=== PATIENT | male | born 1970 | race African-American/Black ===

== ENCOUNTER 2017-12-29 10:46 | Emergency (ER) | payer OTHER ==
[~2017-12-29] VITALS: Ht 172.7 cm; Wt 61.2 kg
[~2017-12-29 10:46] MED LIST: IBUPROFEN 600600 M1 PO; TIZANIDINE HCL4 MG PO
[2017-12-29] MEDS ORDERED: NORFLEX100 MG PO (12:02)
[2017-12-29] MEDS ORDERED: NAPROSYN500 MG PO (12:02)
[2017-12-29 12:18] VITALS: BP 148/94
== END 2017-12-29 12:21 | disposition home or self-care (01) ==
LOC: ER 10:46
DX: S39.012A Strain of muscle, fascia and tendon of lower back, initial encounter (principal); Z91.041 Radiographic dye allergy status; V49.49XA Driver injured in collision with other motor vehicles in traffic accident, initial encounter; Y93.89 Activity, other specified; Y92.410 Unspecified street and highway as the place of occurrence of the external cause; Y99.8 Other external cause status

== ENCOUNTER 2018-12-06 13:00 | Emergency (ER) | payer OTHER ==
[~2018-12-06] VITALS: Ht 175.3 cm; Wt 61.2 kg
[~2018-12-06 13:00] MED LIST changes: +NAPROSYN500 MG PO; +NORFLEX100 MG PO
[2018-12-06] MEDS ORDERED: ROBAXIN 750 MG750 MG PO (15:23)
[2018-12-06] MEDS ORDERED: NORCO 5-325 TA1 EAC1 PO (15:23)
[2018-12-06 16:04] VITALS: BP 129/94
== END 2018-12-06 16:04 | disposition home or self-care (01) ==
LOC: ER 13:00
DX: M54.5 Low back pain (principal); Z90.49 Acquired absence of other specified parts of digestive tract; Z88.8 Allergy status to other drugs, medicaments and biological substances

== ENCOUNTER 2019-01-07 18:13 | Emergency (ER) | payer OTHER ==
[~2019-01-07] VITALS: Ht 177.8 cm; Wt 59.0 kg
[~2019-01-07 18:13] MED LIST changes: +NORCO 5-325 TA1 EAC1 PO; +ROBAXIN 750 MG750 MG PO
[2019-01-07 18:43] LABS: ABSOLUTE NEUTROPHILS 3.4 thou/uL (1.4-8.2); BASOPHILS 0.4 % (0.0-2.0); EOSINOPHILS 6.5 % (0.0-3.0); HEMATOCRIT 41.8 % (42.0-52.0); LYMPHOCYTES 37.1 % (24.0-44.0); MCH 37.9 pg (26.0-34.0); MCHC 33.5 g/dL (28.0-37.0); MONOCYTES 9.5 % (1.0-8.0); PLATELET COUNT 208 thou/uL (150-400); POLYS 46.5 % (36.0-66.0); RDW 12.5 % (10.5-14.5); WBC 7.4 thou/uL (4.0-11.0)
[2019-01-07 18:53] LABS: ANION GAP 9 mmol/L (7-16); BUN 13 mg/dL (7-18); CALCIUM 9.3 mg/dL (8.5-10.1); CHLORIDE 101 mmol/L (98-107); CO2 27 mmol/L (21-32); CREATININE 0.9 mg/dL (0.7-1.3); GLUCOSE 85 mg/dL (74-106); POTASSIUM 3.7 mmol/L (3.5-5.1); SODIUM 137 mmol/L (136-145)
[2019-01-07 19:03] LABS: ALBUMIN 4.2 g/dL (3.4-5.0); SGOT 24 U/L (15-37); SGPT 23 U/L (30-65); TOTAL BILIRUBIN 0.4 mg/dL (<0.1-1.0); TOTAL PROTEIN 8.9 g/dL (6.4-8.2); TROPONIN-I <0.06 ng/mL (<0.06)
[2019-01-07 19:10] LABS: MACROCYTES 3+
[2019-01-07] MEDS ORDERED: PROAIR HFA8.5 GM INH (20:21)
[2019-01-07] MEDS ORDERED: PREDNISONE 20 M20 MG PO (20:21)
[2019-01-07 20:31] VITALS: BP 150/97
--- NOTE | 2019-01-08 11:41 | EKG ---
[address] [address] ELECTROCARDIOGRAM REPORT Name: JIE BAUER [facility] [id number] Admission: 01/07/19 Attend Phys: Discharge: 01/07/19 Date of : 72 Report #: [id number] THIS REPORT FOR: //name// [facility] ED Test Date: 2019-01-07 Test Time: 18:22:06 Pat Name: JIE BAUER Department: Room: Gender: M Building Cleaning Supervisor: SHARRON : 1970 Requested By: Aleisha Waller Order Number: [id number] MD: Deshaun Martin Measurements Intervals [place] Rate: 66 P: 84 GA: 147 QRS: 68 QRSD: 82 T: 75 QT: 402 QTc: 422 Interpretive Statements Sinus rhythm No previous ECG available for comparison Electronically Signed On 01-08-2019 11:41:17 CDT by Deshaun Martin [email or web address] <ELECTRONICALLY SIGNED> By: Deshaun Martin MD 01/08/19 1141 1822 1822 Deshaun Martin MD /EPI
== END 2019-01-07 20:32 | disposition home or self-care (01) ==
LOC: ER 18:13
PROVIDERS: Nurse Practitioner Family
DX: J40 Bronchitis, not specified as acute or chronic (principal); E11.9 Type 2 diabetes mellitus without complications; F17.290 Nicotine dependence, other tobacco product, uncomplicated; Z90.49 Acquired absence of other specified parts of digestive tract; Z91.041 Radiographic dye allergy status; Z98.890 Other specified postprocedural states